=== PATIENT | male | born 1960 | race Caucasian/White ===

== ENCOUNTER → 2019-12-04 07:47 | Outpatient (CLI) | payer BC, SELFPAY ==
--- NOTE | ~2019-12-04 | MR_ITS ---
EXAMINATION: MR lumbar spine wo con DATE: 12/04/2019 08:27 INDICATION: Lumbar radiculopathy. TECHNIQUE: Magnetic resonance imaging (MRI) of the lumbar spine was performed without intravenous con trast. Sequences included sagittal T2-weighted FSE, sagittal T2-weighted FS FSE, sagittal T1-weighted FSE, and axial T2-weighted FSE. COMPARISON: None FINDINGS: There is 4 mm retrolisthesis of L5 on S1 and 3 mm retrolisthesis of L1 on L2. There is mild chronic anterior wedging of T11-L1 vertebral bodies. There is moderately decreased disc height at T1 1-T12, severely decreased disc height at L1-L2, moderately decreased disc height at L3-L4, mildly dec reased disc height at L4-L5, and severely decreased disc height at L5-S1. The distal spinal cord sign al intensity is normal. The conus medullaris is at L1-L2. The following disc levels are specifically discussed: L1-L2: The disc is bulging. There is mild bilateral facet joint osteoarthritis. There is moderate rig ht and mild left neural foraminal stenosis. There is mild central canal stenosis. L2-L3: The disc is mildly bulging. There is moderate bilateral facet joint osteoarthritis. There is m ild bilateral neural foraminal stenosis. There is mild central canal stenosis. L3-L4: The disc is bulging. There is mild bilateral facet joint osteoarthritis. There is mild bilater al neural foraminal stenosis. There is mild central canal stenosis. L4-L5: The disc is bulging and has an annular fissure. There is mild bilateral facet joint osteoarthr itis. There is mild bilateral neural foraminal stenosis. There is mild central canal stenosis. L5-S1: The disc is bulging and has an annular fissure. There is mild bilateral facet joint osteoarthr itis. There is moderate bilateral neural foraminal stenosis. There is mild central canal stenosis. IMPRESSION: 1. Severe lumbar spondylosis. Reviewed, dictated and finalized at location A. R BARKER OPERATOR
== END ==
PROVIDERS: PCP Internal Medicine
DX: M47.896 Other spondylosis, lumbar region (principal)
CPT/HCPCS: 72148

== ENCOUNTER 2020-12-11 11:37 | Outpatient (RCR) | payer BC, SELFPAY ==
[2020-12-11] MEDS: diphenhydrAMINE HCl CAP 25 MG CAPSULE PO (12:40)
[2020-12-11] MEDS: ACETAMINOPHEN 325 MG TABLET 650 MG PO (12:40)
[2020-12-11] MEDS: FAMOTIDINE 20 MG TABLET PO (12:41)
[2020-12-11 12:48] VITALS: BP 120/73; PULSE 78; RESP 18; TEMP 37.1; O2SAT 98
[2020-12-11 14:37] VITALS: BP 107/60
--- NOTE | 2020-12-12 08:43 | PC.NURSE ---
Patient had Bamlanivimab treatment yesterday and had no side effects from the treatment.
== END 2020-12-12 08:25 | disposition home or self-care (01) ==
LOC: AMCINF 11:37
PROVIDERS: PCP Internal Medicine; Visit Provider Internal Medicine
DX: Z23 Encounter for immunization (principal); U07.1 COVID-19; I10 Essential (primary) hypertension
CPT/HCPCS: A9270; J7050; M0239; Q0239

== ENCOUNTER 2022-09-24 16:47 | Emergency (ER) | payer BC, SELFPAY ==
--- NOTE | 2022-09-24 17:07 | ED.URI ---
HPI - URI/Sore Throat General Chief Complaint: Upper Respiratory Infection Stated Complaint: Coughing, Sinus, Fever Time Seen by Provider: 09/24/22 17:55 Source: patient Mode of arrival: ambulatory Limitations: no limitations History of Present Illness HPI Narrative: Mr. Madrigal is a 62-year-old male patient presenting to the clinic today with complaints of coughing, sinus pressure, and fever since this morning. He reports his temperature has been low-grade. He denies any chest pain or shortness of breath MD elicited complaint: sore throat and nasal congestion Related Data Home Medications Medication Instructions Recorded Confirmed fluticasone propionate 50 2 spray intranasal DAILY 10/07/19 05/13/22 mcg/actuation nasal spray,suspension (Flonase Allergy Relief) Allergies Allergy/AdvReac Type Severity Reaction Status Date / Time amoxicillin Allergy Mild Itching Verified 09/24/22 17:38 bacitracin Allergy Mild Hives Verified 09/24/22 17:38 Penicillins Allergy Mild Itching Verified 09/24/22 17:38 polymyxin B Allergy Mild Hives Verified 09/24/22 17:38 Review of Systems Review of Systems: Pertinent positives per HPI. Patient denies any rash, headache, visual changes, dizziness, shortness of breath, chest pain, palpitations, nausea, vomiting, diarrhea, constipation, abdominal pain, or any urinary issues. PMFSH Family History Family History Sibling Hypertension Father Patient's father is Social History Social History Smoking status: Never smoker Second hand tobacco smoke exposure: No Alcohol intake: never Substance use: never Substance use type: does not use Spiritual care concerns: No Comments At the time of my signature, I reviewed and agree with the nursing past medical, surgical, social, and family history. There is no relevant family history pertinent to the patient complaint. Exam Narrative: General: Well-developed, well nourished, in no apparent distress Head: Normocephalic, atraumatic Eyes: Pupils equally round and reactive to light bilaterally, EOM intact, sclera and conjunctive clear, no discharge, lids normal Ears: TMs intact and dull, ear canals clear, no drainage, grossly hearing normal. Nose: Nares patent, clear nasal discharge, no inflammation, no sinus tenderness. Mouth: Oral pharynx without lesions or masses, good dentition, MMM. postnasal drip, oropharynx red Neck: Supple, trachea midline, no enlargement of anterior or posterior cervical nodes, no thyroid masses or goiter palpable. Cardio: Regular rate and rhythm, s1 and s2 normal, no murmur appreciated. Resp: Clear to auscultation bilaterally, no rhonchi, rales, wheezing or rubs Course Course Emergency Course: Portions of this record may have been created with voice recognition software. Level of Care: Express Care Visit Vital Signs Vital signs: Vital Signs Temperature 37.9 C H 09/24/22 17:39 Pulse Rate 94 09/24/22 17:39 Respiratory Rate 16 09/24/22 17:39 Blood Pressure 142/82 H 09/24/22 17:39 Pulse Oximetry 100 09/24/22 17:39 Oxygen Delivery Room Air 09/24/22 17:39 Temperature 37.9 C H 09/24/22 17:39 Pulse Rate 94 09/24/22 17:39 Respiratory Rate 16 09/24/22 17:39 Blood Pressure 142/82 H 09/24/22 17:39 Pulse Oximetry 100 09/24/22 17:39 Oxygen Delivery Room Air 09/24/22 17:39 Vital signs reviewed MDM - URI/Sore Throat MDM Narrative Medical decision making narrative: at the time of visit patient is resting comfortably on the exam table. Influenza and COVID testing was negative in the clinic today. I suspect patient has an upper respiratory infection/ viral syndrome. Supportive measures were discussed with the patient he voiced understanding of discharge instructions and agrees to treatment plan. Differential Diagnosis
[2022-09-24 17:39] VITALS: BP 142/82; PULSE 94; RESP 16; TEMP 37.9; O2SAT 100
== END 2022-09-24 18:20 | disposition home or self-care (01) ==
PROVIDERS: Emergency Provider Nurse Practitioner Family; PCP Internal Medicine
DX: J06.9 Acute upper respiratory infection, unspecified (principal); B34.9 Viral infection, unspecified; Z20.822 Contact with and (suspected) exposure to COVID-19; I10 Essential (primary) hypertension; K21.9 Gastro-esophageal reflux disease without esophagitis; E03.9 Hypothyroidism, unspecified; Z86.16 Personal history of COVID-19
CPT/HCPCS: 87426; 87804; 99213; C9803; G0463

== ENCOUNTER 2022-10-21 14:44 | Outpatient (CLI) | payer BC, SELFPAY ==
--- NOTE | ~2022-10-21 | XR_ITS ---
Clinical Indication: Cough PA and lateral views of the chest: Comparison: 10/16/2005 Findings: The lungs are clear, without evidence of focal consolidation or pleural effusion. Cardiome diastinal silhouette is within normal limits. Bones and soft tissues are unremarkable. Impression: Normal chest. Reviewed, dictated and finalized at [facility]. MAKER Impression: Normal chest.
[2022-10-21 15:59] LABS: Influenza A QL RT-PCR Negative (Negative); Influenza B QL RT-PCR Negative (Negative); SARS-CoV-2 RNA PCR Positive
== END 2022-10-21 14:45 | disposition home or self-care (01) ==
PROVIDERS: PCP Internal Medicine; Visit Provider Internal Medicine
DX: U07.1 COVID-19 (principal)
CPT/HCPCS: 71046; 87636

== ENCOUNTER 2022-12-22 16:50 | Emergency (ER) | payer BC, SELFPAY ==
[2022-12-22 16:58] VITALS: BP 152/75; PULSE 86; RESP 12; TEMP 36.8; O2SAT 100
[2022-12-22 16:59] VITALS: BP 152/75; PULSE 86; RESP 12; TEMP 36.8; O2SAT 100
--- NOTE | 2022-12-22 16:59 | ED.HA ---
HPI - Headache General Chief Complaint: Upper Respiratory Infection Stated Complaint: Headache Time Seen by Provider: 12/22/22 16:59 Source: patient, RN notes reviewed and old records reviewed Mode of arrival: ambulatory Limitations: no limitations History of Present Illness HPI Narrative: 62-year-old male presents to the [facility] with a sinus headache since yesterday. Has taken ibuprofen but no other medications. Patient states that he is concern for both COVID and flu even though he had COVID 2 months ago Reports that he did get his flu shot this year Onset (ago): day(s) (1) Related Data Allergies Allergy/AdvReac Type Severity Reaction Status Date / Time amoxicillin Allergy Mild Itching Verified 12/22/22 16:58 bacitracin Allergy Mild Hives Verified 12/22/22 16:58 Penicillins Allergy Mild Itching Verified 12/22/22 16:58 polymyxin B Allergy Mild Hives Verified 12/22/22 16:58 Review of Systems Review of Systems: All systems reviewed & are unremarkable except as noted in HPI and below Constitutional: Constitutional: Reports no additional constitutional complaints Eyes: Eyes: Reports no additional eye complaints ENT: Reports as per HPI and Reports nasal congestion Cardiovascular: Cardiovascular: Reports no additional cardiovascular complaints, Denies chest pain and Denies dyspnea Respiratory: Respiratory: Reports no additional respiratory complaints, Denies chest congestion, Denies cough and Denies dyspnea Gastrointestinal: Gastrointestinal: Reports no additional gastrointestinal complaints, Denies abdominal pain, Denies nausea and Denies vomiting Musculoskeletal: Musculoskeletal: Reports no additional musculoskeletal complaints Integumentary/Breasts: Skin/Breast: Reports system reviewed and no additional complaints, except as docu Neurologic: Reports system reviewed and no additional complaints, except as documented Psychiatric: Psychiatric: Reports no additional psychiatric complaints Allergic/Immunologic: Allergic/Immunologic: Reports no additional allergic/immunologic complaints [facility] Family History Family History Sibling Hypertension Father Patient's father is Social History Social History Smoking status: Never smoker Second hand tobacco smoke exposure: No Alcohol intake: never Substance use: never Substance use type: does not use Lack of Transportation: No Lack of Food: Never True Current Housing: I Have Housing Concerned About Future Housing: No Difficulty Paying Gas/Electric Bills: No Difficulty Paying for Meds: No Currently Unemployed: No Education: High School Diploma/GED Difficulty w/ Childcare or Family Care: No Spiritual care concerns: No Comments At the time of my signature, I reviewed and agree with the nursing past medical, surgical, social, and family history. There is no relevant family history pertinent to the patient complaint. Exam Const: General: cooperative, healthy appearing, comfortable, no acute distress, well developed, alert and well nourished Nutritional Appearance: well nourished Orientation/consciousness: patient oriented x3 Limitations: no limitations HENMT: Head: normal to inspection Ears: hearing grossly normal bilaterally and external ears normal Face/Nose/Sinus: Normal external nose present, Normal nares present, Normal nasal mucous membranes and turbinates present and normal facial exam Face and sinus: normal facial exam and sinus tenderness maxillary Mouth: Yes Normal oral and palatal mucosa present, Yes lip normal and Yes moist mucous membranes Throat: posterior oropharynx normal and uvula midline Eyes: General: appearance normal, both eyes and all related structures Alignment and Position: alignment normal Periorbital: periorbital findings normal Conjunctivae: conjunctivae normal Pupils: Equal, round and
== END 2022-12-22 17:40 | disposition home or self-care (01) ==
PROVIDERS: Emergency Provider Nurse Practitioner; PCP Internal Medicine
DX: J10.1 Influenza due to other identified influenza virus with other respiratory manifestations (principal); Z20.822 Contact with and (suspected) exposure to COVID-19; Z86.16 Personal history of COVID-19
CPT/HCPCS: 87426; 87804; 99213; C9803; G0463

== ENCOUNTER 2023-01-13 00:41 | Day surgery (SDC) | payer BC, SELFPAY ==
[2023-01-01 16:34] VITALS: BMI 24.7
[2023-01-13 07:23] VITALS: BP 133/75; PULSE 60; RESP 16; TEMP 36.1; O2SAT 100
[2023-01-13 07:25] VITALS: BMI 26.2
[2023-01-13] MEDS: LACTATED RINGERS 1,000 ML 150 ML IV CONT (07:41)
--- NOTE | 2023-01-13 07:44 | WPDANESEPPF ---
Anes - Initial Pre Proc Eval Procedure: Operation Date: 01/13/23 08:30 Proposed Procedures p Screening Colonoscopy - Yohan Albrecht MD Date/Time: 01/13/23 07:44 Surgeon: Yohan Albrecht MD Pre Op Diagnosis: neoplasm screening Patient Data Age: 62 Gender: M Height: 1.68 m Weight: 73.6 kg Last Vital Signs Temp 36.1 C L 01/13/23 07:23 Pulse 60 01/13/23 07:23 Resp 16 01/13/23 07:23 BP 133/75 01/13/23 07:23 Pulse Ox 100 01/13/23 07:23 O2 Del Method Room Air 01/13/23 07:23 Allergies Allergy/AdvReac Type Severity Reaction Status Date / Time amoxicillin Allergy Intermediate Itching Verified 01/13/23 07:22 bacitracin Allergy Intermediate Hives Verified 01/13/23 07:22 Penicillins Allergy Intermediate Itching Verified 01/13/23 07:22 polymyxin B Allergy Intermediate Hives Verified 01/13/23 07:22 Home Medications Medication Instructions Recorded Confirmed Type lisinopril 20 mg tablet 20 mg PO DAILY #90 tabs 07/24/22 01/13/23 Rx levothyroxine 50 mcg tablet 50 mcg PO DAILY #90 tabs 12/03/22 01/13/23 Rx omeprazole 40 mg capsule,delayed 40 mg PO DAILY #90 caps 01/06/23 01/13/23 Rx release Patient hx anesthesia problems: none Family hx anesthesia problems: none Results Review: All pre-operative results and documents have been reviewed as part of the pre-operative evaluation. [facility] Past Medical History Medical History (Updated 01/13/23 @ 07:44 by Frank Gordon MD) HTN (hypertension) Surgical History Surgical History (Updated 01/13/23 @ 07:45 by Frank Gordon MD) H/O colonoscopy Family History Family History Sibling Hypertension Father Patient's father is Social History Social History Smoking status: Never smoker Second hand tobacco smoke exposure: No Alcohol intake: former Substance use: never Substance use type: does not use Lack of Transportation: No Lack of Food: Never True Current Housing: I Have Housing Concerned About Future Housing: No Difficulty Paying Gas/Electric Bills: No Difficulty Paying for Meds: No Currently Unemployed: No Education: High School Diploma/GED Difficulty w/ Childcare or Family Care: No Living arrangements: with family Spiritual care concerns: No Anes - Eval Final PreProcedure Day of Procedure 01/13/23 07:44 Patient weight: normal Heart: regular rate and rhythm Lungs: clear to auscultation Airway: Mallampati scale class II Neurological: alert and oriented Last oral intake: >/= 8 hours ASA classification: II Emergent: no Anesthetic plan: proceed Anesthesia type and monitoring: general GIVS and standard monitoring Results Review: All pre-operative results and documents have been reviewed as part of the pre-operative evaluation. Informed Consent: The patient's anesthetic plan and its attendant risks and benefits were discussed with the patient/family/POA. Questions were solicited and answers provided to the satisfaction of the patient/family/POA.
--- NOTE | 2023-01-13 08:17 | PM.HPGS ---
History of Present Illness History of Present Illness Consent: Risks, benefits, and alternatives have been discussed and questions answered. Patient agrees to proceed with procedure. Chief complaint: neoplasm screening Narrative: Sonu Madrigal is a 62 year old male here for colonoscopy, last one 2018 with polyp removed Review of Systems Constitutional: Constitutional: Denies headache(s) and Denies weakness Eyes: Eyes: Denies blurry vision ENT: Reports Normal hearing present, Denies headache(s) and Denies neck pain Cardiovascular: Cardiovascular: Denies chest pain and Denies dyspnea Respiratory: Respiratory: Denies dyspnea Gastrointestinal: Gastrointestinal: Reports no additional gastrointestinal complaints Genitourinary: Genitourinary: Denies dysuria Musculoskeletal: Musculoskeletal: Denies neck pain Integumentary/Breasts: Skin/Breast: Denies dry skin Neurologic: Reports Normal hearing present, Denies headache(s) and Denies weakness Psychiatric: Psychiatric: Denies anxiety Endocrine: Endocrine: Denies change in body appearance Hematologic/Lymphatic: Hematologic/Lymphatic: Denies easy bleeding Allergic/Immunologic: Allergic/Immunologic: Denies urticaria PMFSH Past Medical History Medical History (Updated 01/13/23 @ 08:17 by Yohan Albrecht MD) Adenomatous colon polyp HTN (hypertension) Surgical History Surgical History (Updated 01/13/23 @ 07:45 by Frank Gordon MD) H/O colonoscopy Family History Family History Sibling Hypertension Father Patient's father is Social History Social History Smoking status: Never smoker Second hand tobacco smoke exposure: No Alcohol intake: former Substance use: never Substance use type: does not use Lack of Transportation: No Lack of Food: Never True Current Housing: I Have Housing Concerned About Future Housing: No Difficulty Paying Gas/Electric Bills: No Difficulty Paying for Meds: No Currently Unemployed: No Education: High School Diploma/GED Difficulty w/ Childcare or Family Care: No Living arrangements: with family Spiritual care concerns: No Meds Home Medications and Allergies Home Medications Medication Instructions Recorded Confirmed Type lisinopril 20 mg tablet 20 mg PO DAILY #90 tabs 07/24/22 01/13/23 Rx levothyroxine 50 mcg tablet 50 mcg PO DAILY #90 tabs 12/03/22 01/13/23 Rx omeprazole 40 mg capsule,delayed 40 mg PO DAILY #90 caps 01/06/23 01/13/23 Rx release Allergies Allergy/AdvReac Type Severity Reaction Status Date / Time amoxicillin Allergy Intermediate Itching Verified 01/13/23 07:22 bacitracin Allergy Intermediate Hives Verified 01/13/23 07:22 Penicillins Allergy Intermediate Itching Verified 01/13/23 07:22 polymyxin B Allergy Intermediate Hives Verified 01/13/23 07:22 Vital Signs Vital Signs - 24 hr 01/13/23 07:23 Temperature 97.0 F L Pulse Rate 60 Respiratory Rate 16 Blood Pressure 133/75 Pulse Oximetry 100 Oxygen Delivery Room Air Exam Const: General: comfortable and no acute distress HENMT: Face/Nose/Sinus: Normal nares present Eyes: General: appearance normal, both eyes and all related structures Neck: Neck: no JVD Resp: Auscultation: clear to auscultation bilaterally Cardio: Rate: regular rate Rhythm: regular rhythm GI: Inspection: non-distended GI Palp: Yes Soft to palpation Skin: General skin exam: normal color Neuro: General: gait normal Speech: normal speech Extrem: General: normal to inspection Psych: Mental Status: mental status grossly normal Assessment and Plan Assessment and plan (1) Adenomatous colon polyp: Code(s): D12.6 - Benign neoplasm of colon, unspecified Status: Acute Assessment and Plan: colonoscopy
[2023-01-13 08:38] VITALS: BP 97/58; PULSE 69; RESP 17; O2SAT 97
[2023-01-13 08:48] VITALS: BP 96/60; PULSE 66; RESP 19; O2SAT 97
[2023-01-13 08:58] VITALS: BP 108/72; PULSE 66; RESP 20; O2SAT 98
== END 2023-01-13 09:02 | disposition home or self-care (01) ==
PROVIDERS: PCP Internal Medicine; Visit Provider Internal Medicine Gastroenterology
PROC: 0DJD8ZZ Inspection of Lower Intestinal Tract, Via Natural or Artificial Opening Endoscopic (ICD-10-PCS; CPT 45378; principal; 2023-01-13 08:30)
DX: Z12.11 Encounter for screening for malignant neoplasm of colon (principal); D12.0 Benign neoplasm of cecum; I10 Essential (primary) hypertension; K57.30 Diverticulosis of large intestine without perforation or abscess without bleeding; K64.8 Other hemorrhoids
CPT/HCPCS: 45385; 88305; J2704; J7120

== ENCOUNTER 2024-10-11 14:37 | Outpatient (CLI) | payer MEDICARE, SELFPAY ==
--- NOTE | ~2024-10-11 | CT_ITS ---
CT sinus wo con Ordering provider: David Valdes DO History: . J32.9 - Chronic sinusitis, unspecified . Comparison: 2 Technique: Thin slice Scans CT of the paranasal sinuses was performed with coronal and sagittal refor matted images. No IV contrast. . Automated exposure control and iterative reconstruction technique w ere employed. The dose-length product was 352.32 mGy-cm. Findings: NASAL SEPTUM: Mild left nasal septal deviation. Old fracture of the bones noted. OSTEOMEATAL UNITS: Bilaterally patent. NASAL TURBINATES AND NASOPHARYNX: Normal. PARANASAL SINUSES: Well aerated. VISUALIZED MASTOIDS: Normal as visualized. BONES: Normal. SUPERFICIAL SOFT TISSUES/VISUALIZED BRAIN PARENCHYMA: Normal. IMPRESSION: Old fracture of the left nasal bone. Mild left nasal septal deviation. Reviewed, dictated and finalized at location A. LER AND TEST PREPARER
== END 2024-10-11 14:38 | disposition home or self-care (01) ==
PROVIDERS: PCP Internal Medicine; Visit Provider Internal Medicine
DX: J32.9 Chronic sinusitis, unspecified (principal); J34.2 Deviated nasal septum
CPT/HCPCS: 70486